=== PATIENT | male | born 2000 | race African-American/Black ===

== ENCOUNTER 2019-11-10 18:20 | Emergency (ER) | payer OTHER, SELFPAY ==
--- NOTE | ~2019-11-10 | XR_ITS ---
XR finger 2nd LT min 2V 11/10/2019 18:54 INDICATION: Second finger pain after recent trauma PROCEDURE: 3 views left second finger COMPARISON: No prior studies for comparison. FINDINGS: Fracture, dislocation or subluxation is not identified. The soft tissues appear within norm al limits. No foreign bodies are identified. IMPRESSION: 1: NO ACUTE BONE OR JOINT ABNORMALITY IDENTIFIED. Reviewed, dictated and finalized at location A.
[2019-11-10 18:37] VITALS: BP 126/56; PULSE 65; RESP 16; TEMP 36.1; O2SAT 99
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
== END 2019-11-10 19:03 | disposition home or self-care (01) ==
PROVIDERS: Emergency Provider Nurse Practitioner
DX: S60.418A Abrasion of other finger, initial encounter (principal); W23.0XXA Caught, crushed, jammed, or pinched between moving objects, initial encounter
CPT/HCPCS: 73140; 99213; G0463

== ENCOUNTER 2020-01-21 16:33 | Emergency (ER) | payer OTHER, SELFPAY ==
[2020-01-21 16:42] VITALS: BP 124/64; PULSE 61; RESP 16; TEMP 36.6; O2SAT 100
--- NOTE | 2020-01-21 16:47 | ED.EXTPRO ---
HPI - Extremity Problem General Chief complaint: Extremity Problem,Nontraumatic Stated complaint: rt foot pain Time Seen by Provider: 01/21/20 16:43 Source: patient and RN notes reviewed Mode of arrival: ambulatory History of Present Illness HPI Narrative: Patient presents today complaining of an injury to his right foot x2 days. Denies injury and states he woke up with the pain. Denies numbness or tingling in the leg or foot. Currently rates pain 7/10 and has tried no medications or [id number] interventions for pain prior to arrival. MD Complaint: extremity pain Related Data Home Medications Medication Instructions Recorded Confirmed No Home Medications 11/10/19 01/21/20 Allergies Allergy/AdvReac Type Severity Reaction Status Date / Time Penicillins Allergy Unknown Unknown Verified 11/10/19 18:40 Review of Systems Review of Systems: Narrative: CONSTITUTIONAL: Denies body aches, fever, chills, or sweats. EYES: Denies visual changes, redness, or discharge. ENT: Denies rhinorrhea, congestion, sore throat, or otalgia. CARDIOVASCULAR: Denies chest pain, palpitations, or edema. RESPIRATORY: Denies cough or dyspnea. GASTROINTESTINAL: Denies abdominal pain, nausea, vomiting, or diarrhea. GENITOURINARY: Denies dysuria or hematuria. SKIN: Denies rash, itching, or wounds. MUSCULOSKELETAL: Denies back pain, or myalgia. Right foot pain NEUROLOGIC: Denies headache, numbness, tingling, or weakness. PSYCH: Denies depression or anxiety. PMFSH Social History Social History Smoking status: Never smoker Alcohol intake: former Substance use type: marijuana Gender identity (if verbalized by the patient): Male Comments At time of signature, I have reviewed and agree with nursing past medical, surgical, social and family history unless otherwise noted. Please see nursing chart for further information. There is no relevant family history pertinent to the presenting complaint Exam Narrative: Exam Narrative: GENERAL: Well-appearing, well-nourished, and in no acute distress. HEAD: Normocephalic, atraumatic. EYES: EOMI. No redness or drainage. Conjunctivae normal. ENT: Mucous membranes pink and moist. CHEST: No respiratory distress. HEART: Regular rate and rhythm. EXTREMITIES: Normal range of motion. No edema. 0.5x1cm mild bruising to the distal achilles tendon area. No surrounding edema or erythema. Mild tenderness to palpation. Full AROM without increased pain. Distal sensation intact. Capillary refill normal. Pedal pulse normal. SKIN: Warm, dry, no rash. Capillary refill normal. Normal skin turgor. NEURO: No focal deficits. Alert and oriented x3. Gait steady. PSYCH: Normal affect. No signs of depression or anxiety. Course Vital Signs Vital signs: Vital Signs Temperature 97.8 F 01/21/20 16:42 Pulse Rate 61 01/21/20 16:42 Respiratory Rate 16 01/21/20 16:42 Blood Pressure 124/64 01/21/20 16:42 Pulse Oximetry 100 01/21/20 16:42 Temperature 97.8 F 01/21/20 16:42 Pulse Rate 61 01/21/20 16:42 Respiratory Rate 16 01/21/20 16:42 Blood Pressure 124/64 01/21/20 16:42 Pulse Oximetry 100 01/21/20 16:42 Reviewed. Pt has been instructed to follow up with his PCP regarding his elevated blood pressure today. MDM - Extremity (Nontraumatic) Differential Diagnosis Differential diagnosis: Likely gout, cellulitis, lower extremity edema and other (Contusion) Critical Care Time Critical Care Time Critical Care Time: No Discharge Plan Discharge Clinical Impression: Ankle contusion Qualifiers: Encounter type: initial encounter Laterality: right Qualified Code(s): S90.01XA - Contusion of right ankle, initial encounter Patient Disposition: Home, Self-Care Condition: Stable Instructions: Contusion in Adults (ED) Additional Instructions: The bruising on your ankle will resolve on its own in the next few days. Matthew
== END 2020-01-21 16:49 | disposition home or self-care (01) ==
PROVIDERS: Emergency Provider Nurse Practitioner
DX: S90.01XA Contusion of right ankle, initial encounter (principal); X58.XXXA Exposure to other specified factors, initial encounter
CPT/HCPCS: 99212; G0463

== ENCOUNTER 2020-02-11 13:14 | Emergency (ER) | payer OTHER, SELFPAY ==
[2020-02-11 13:25] VITALS: BP 105/76; PULSE 60; RESP 12; TEMP 36.5; O2SAT 99
--- NOTE | 2020-02-11 13:48 | ED.GENADULT ---
HPI - General Adult General Chief complaint: Ear Stated complaint: Ear Time Seen by Provider: 02/11/20 13:48 Source: patient Mode of arrival: ambulatory Limitations: no limitations History of Present Illness HPI narrative: 19-year-old male patient presents to the the medical center with complaints of right-sided ear pain. Patient states is been there for about 2 days now. Patient denies any fevers, body aches or chills. Denies any discharge coming from the ear. Related Data Home Medications Medication Instructions Recorded Confirmed No Home Medications 11/10/19 02/11/20 Allergies Allergy/AdvReac Type Severity Reaction Status Date / Time Penicillins Allergy Unknown Unknown Verified 02/11/20 13:27 Review of Systems Review of Systems: Narrative: CONSTITUTIONAL: Denies fever, chills, or sweats. EYES: Denies visual changes, redness, or discharge. ENT: Denies rhinorrhea, congestion, sore throat, or otalgia. Positive left-sided ear pain x2 days CARDIOVASCULAR: Denies chest pain, palpitations, or edema. RESPIRATORY: Denies cough or dyspnea. GASTROINTESTINAL: Denies abdominal pain, nausea, vomiting, or diarrhea. GENITOURINARY: Denies dysuria or hematuria. SKIN: Denies rash or itching. MUSCULOSKELETAL: Denies back pain, joint pain, or myalgia. NEUROLOGIC: Denies headache, numbness, or weakness. PSYCHIATRIC: Denies anxiety or depression. [facility] Family History Family History Other Diabetes mellitus Hypertension Social History Social History Smoking status: Never smoker Alcohol intake: former Substance use type: marijuana Gender identity (if verbalized by the patient): Male Comments At the time of my signature I agree with nursing past medical history, surgical, social, and family history. There is no relevant family history pertinent to the presenting complaint. Exam Narrative: Exam Narrative: GENERAL: Well-appearing, well-nourished, and in no acute distress. HEAD: Normocephalic, atraumatic. EYES: PERRLA and EOMI. ENT: Nares clear, no rhinorrhea or epistaxis. Mucous membranes moist. Bilateral TMs are clear with no erythema or foreign bodies in the canal. Patient complains of pain to palpation of the tragus of the right ear. On palpation there is a very small deep pimple-like area noted on palpation. No open wounds, erythema or warmness noted on palpation. NECK: Supple. No lymphadenopathy CHEST: Clear to auscultation. No respiratory distress. HEART: Regular rate and rhythm. No murmur heard. Normal peripheral pulses. ABDOMEN: Soft, nontender, nondistended, normal active bowel sounds. EXTREMITIES: Normal range of motion. No edema. SKIN: Warm, dry, no rash. NEURO: No focal deficits. Alert and oriented x3. Course Vital Signs Vital signs: Vital Signs Temperature 36.5 C 02/11/20 13:25 Pulse Rate 60 02/11/20 13:25 Respiratory Rate 12 02/11/20 13:25 Blood Pressure 105/76 02/11/20 13:25 Pulse Oximetry 99 02/11/20 13:25 Temperature 36.5 C 02/11/20 13:25 Pulse Rate 60 02/11/20 13:25 Respiratory Rate 12 02/11/20 13:25 Blood Pressure 105/76 02/11/20 13:25 Pulse Oximetry 99 02/11/20 13:25 Vital signs reviewed. Medical Decision Making Differential Diagnosis Differential Diagnosis: Differential diagnosis: Otitis media, otitis externa, perforated TM, infection of the outer ear, foreign body or cerumen impaction, ruptured TM, acute mastoiditis, ligament otitis externa, dehydration, pneumonia, sepsis, dental or intraoral infection, TMJ dysfunction Discussed with patient this does most likely feel like a deep pimple that is probably to the area. Discussed with patient he can put a warm compress to the area to help with pain. He may take Tylenol ibuprofen as needed. Discussed with him to keep an eye on the symptoms and if he continues to get worsening symptoms such as redness
--- NOTE | 2020-02-11 13:49 | PC.NURSE ---
1348 I & D completed by provider, area dressed by provider.
== END 2020-02-11 14:00 | disposition home or self-care (01) ==
PROVIDERS: Emergency Provider Nurse Practitioner Family
DX: R23.8 Other skin changes (principal)
CPT/HCPCS: 99211; G0463

== ENCOUNTER 2020-10-26 16:16 | Emergency (ER) | payer OTHER, SELFPAY ==
[2020-10-26 16:29] VITALS: BP 147/93; PULSE 76; RESP 12; TEMP 36.8; O2SAT 100
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
== END 2020-10-26 16:52 | disposition home or self-care (01) ==
PROVIDERS: Emergency Provider Nurse Practitioner
DX: M54.2 Cervicalgia (principal)
CPT/HCPCS: 99213; G0463